=== PATIENT | female | born 1955 | race Caucasian/White ===

== ENCOUNTER → 2023-12-07 09:25 | Outpatient (REF) | payer OTHER, SELFPAY | LOC: WDC 09:25 | PROVIDERS: ATTENDING PHYSICIAN Surgery Plastic and Reconstructive Surgery; FAMILY PHYSICIAN Nurse Practitioner | DX: K46.9 Unspecified abdominal hernia without obstruction or gangrene (principal); T85.49XA Other mechanical complication of breast prosthesis and implant, initial encounter; Z01.818 Encounter for other preprocedural examination | CPT/HCPCS: 71260; 74177; 76642; 93005; Q9967 ==

== ENCOUNTER → 2023-12-20 11:20 | Outpatient (REF) | payer OTHER, SELFPAY | LOC: WDC 11:20 | PROVIDERS: ATTENDING PHYSICIAN Surgery Plastic and Reconstructive Surgery; FAMILY PHYSICIAN Nurse Practitioner | DX: T85.49XA Other mechanical complication of breast prosthesis and implant, initial encounter (principal); K46.9 Unspecified abdominal hernia without obstruction or gangrene | CPT/HCPCS: 19000; 76942; 88112 ==

== ENCOUNTER 2024-01-26 18:07 | Observation (INO) | payer OTHER, SELFPAY ==
[2024-01-26] VITALS (19 sets, daily range): BP systolic 0–135; BP diastolic 52–99; BMI 25.8
[2024-01-26] MEDS: TYLENOL 1000 MG PO ×2 (11:04→19:41)
--- NOTE | 2024-01-26 11:41 | W.SUR.PREOP ---
Pre-Operative Surgical Note
-
I have examined this patient prior to the performance of the scheduled procedure.
The patient's condition is unchanged from the time of the current History and
Physical and the patient is able to undergo the scheduled procedure.
--- NOTE | 2024-01-26 13:18 | W.IMMPOSTOP ---
Addendum entered and electronically signed by Jann Vines MD 01/26/24 13:25:
#[id number]
Original Note:
Surgical Immed Post Op Note
-
Primary Surgeon: Jasmyn
Assisting Surgeon: Alicia LINDSEY
Pre-op Diagnosis: Epigastric ventral hernia
Post-op Diagnosis: Epigastric ventral hernia; 2 cm
Procedure Performed: Open ventral hernia pair with mesh; Ventralex ST 6.4 cm round
Anesthesia Type: GETA +0.25% Marcaine
Specimen / Cultures: None
Estimated Blood Loss: 6 mL
Complications: None immediate
Operative Findings: 2 cm epigastric ventral hernia containing preperitoneal fat. Underlay preperitoneal mesh repair, Ventralex ST 6.4 cm round, with closure of fascial defect.
--- NOTE | 2024-01-26 16:31 | W.IMMPOSTOP ---
Surgical Immed Post Op Note
-
Primary Surgeon: UL Saleem MD
Assisting Surgeon:
Pre-op Diagnosis: ruptured silicone gel breast implant, grade 4 capsular contracture, delayed seroma, history of textured breast implants
Post-op Diagnosis: same
Procedure Performed: bilateral capsulectomies with removal of right implant, removal of left ruptured implant, bilateral lateral capsulorrhaphy's, insertion of cohesive gel silicone breast implants
Anesthesia Type: General
Specimen / Cultures: Right and left breast capsule, left periprosthetic fluid for cytology, left fluid for pathology
Estimated Blood Loss: 30 cc
Complications: none
Operative Findings: thick left breast implant capsule with associated fluid collection, ruptured silicone implant on the left, intact right silicone gel textured implant
--- NOTE | 2024-01-26 16:38 | OR.RPT ---
Operative Report
Operative Report
date of surgery: 01/26/2024
Surgeon: LU Saleem MD
Preoperative diagnosis:
1. History of bilateral textured breast implants
2. Left breast implant rupture
3. Delayed onset seroma of the left breast
4. Capsular contracture, grade 4
Postoperative diagnosis: Same
Procedure:
1. Complete en bloc capsulectomy, bilateral breast
2. Removal of right intact breast implant
3. Removal of left ruptured breast implant
4. Bilateral lateral capsulorrhaphies
5. Bilateral insertion of silicone gel breast implants (cosmetic)
Anesthesia: General
EBL: 30 cc
Complications: None
Specimens: Right breast capsule, left breast capsule, left breast ruptured implant and fluid, left periprosthetic fluid for cytology
Indications for procedure:
Patient is a 68-year-old female with a long history of bilateral breast implants. These were placed through a periareolar incision. She presented in the spring with concerns for rupture and complaints of capsular contracture. We discussed
removal of the bilateral breast implants with capsulectomy at that time, but she desired to proceed with cosmetic replacement of bilateral breast implants. She presented again more recently with notable changes to the left breast. On initial exam,
capsular contracture was present but no fluid collection or distortion was obvious. On follow-up exam, there was a clear interval change with associated fluid collection. As such she was referred for CT scan and aspiration of the fluid for
evaluation for potential ALCL given the delayed onset seroma. This was negative or not enough fluid was able to be sampled. As such decision was made to proceed with bilateral capsulectomy and removal of the implants. The periprosthetic fluid be
sent for cytology as able and the capsulectomy would be performed en bloc. She desired cosmetic replacement of the bilateral breast implants. She desired to be slightly larger than her preoperative state. Risks of implants were reviewed at
length including hematoma, seroma, capsular contracture, breast implant associated ALCL, infection, rupture, malposition and need for future surgery. She understood these risks and desired to proceed. The surgery was coordinated with general
surgery for which she was undergoing elective ventral hernia repair with mesh By Dr. Vines.
Procedure in detail: Procedure was identified preoperatively and the surgical site was confirmed to be the bilateral breast. Inframammary incisions were marked out along the fold. All questions were answered and consents were confirmed. Was
confirmed with the patient she desired to be slightly larger than her preoperative state. Patient was taken back to the operating room placed supine on the table. she was prepped and draped in the usual sterile fashion using ChloraPrep solution.
Timeout for patient safety was performed was confirmed that preoperative antibiotics have been administered and bilateral SCDs were placed. Procedure began with Dr. Vines performing the ventral hernia repair. His operative report will be
dictated separately.
Upon completion, I reentered the operating room. My procedure began with the injection 1% lidocaine with epinephrine in the proposed incisions in the fold. 15 blade was used to for started on the right and incise the markings. Bovie
electrocautery was used to dissect down to the implant capsule. Electrocautery was used to dissect around the capsule to perform the capsulectomy en bloc. This was done on the anterior and posterior surface as much as was able prior to performing
a capsulotomy and removing an intact right textured implant with no gastroenterology nurse information but labeled as 500 cc. The capsule itself appeared only mildly thickened but largely regular. The remainder of the capsulectomy was performed freeing the
tissue from the associated pectoralis muscle. Marcaine block was performed in a lateral capsulorrhaphy using oh0 PDS suture was done along the lateral chest wall after ensuring meticulous hemostasis. Double antibiotic solution followed by dilute
Betadine was used to irrigate the pocket, new gloves were donned, and a Tong funnel used to placed a 575 cc Sientra plus silicone gel implant. a drain was placed and the wound was closed in layers with 2-0 Vicryl deep followed by 3-0 and 4-0
Monocryl. Attention was then drawn to the left side where the fold incision was made with a 15 blade and Bovie electrocautery was used to dissect out the capsule. Again, a complete capsulectomy was performed en bloc. At some point, capsulotomy
was made and the fluid was collected to be sent for cytology and pathology. The fluid itself was thin and brown. There was some intracapsular contents were also sent for pathology. The ruptured silicone gel was removed and the remainder of the
capsulectomy was performed. The capsule on the left side was noticeably thickened with an irregular and discolored internal surface. Following the complete capsulectomy, no residual visible or palpable abnormalities existed in the wound bed.
Marcaine blocks were performed and meticulous hemostasis was ensured, a lateral capsulorrhaphy was performed and the wound bed was irrigated with double antibiotic solution followed by dilute Betadine. A 575 cc silicone gel Sientra implant was
placed into the left pocket using a no touch technique after donning new gloves and using a Tong funnel. A drain was also left in place. The wound was then closed in layers using 2-0 Vicryl deep followed by 3-0 and 4-0 Monocryl. Patient
tolerated the procedure well, was performed out complication, all counts were correct at the end the case. She was extubated and taken the PACU for further care after appropriately dressing the wounds.
--- NOTE | 2024-01-26 18:23 | PTCARENOTE ---
addendum: pt does not meet pacu criteria, remain drowsy, unablto wean o2, notify dr. sandoval and char, both made aware of pt. condition. Dr. Saleem placed admit orders. Pt's was informed.
[2024-01-26] MEDS: LIPITOR 40 MG PO (19:42)
[2024-01-26] MEDS: ULTRAM 50 MG PO (19:56)
[2024-01-26] MEDS: ANCEF 5 IV (19:57)
--- NOTE | 2024-01-26 22:12 | PTCARENOTE ---
Pt arrived at aprox 1850 from PACU. Pt AAOx3 but drowsy. Vitals stable. Pt with bilateral breast CHARLES drains with 3 other surgical incisions all with gauze and tegaderms. No drainage noted. Admission and assessment completed. Pt does have pain to
drain sites. Medicated with Tramadol and scheduled tylenol. Pt able to drink some tea and eat a box lunch. Pt instructed to ring for assistance OOB.
[2024-01-27 03:13] VITALS: BP 92/58
[2024-01-27] MEDS: TYLENOL PO (05:00)
[2024-01-27] MEDS: ULTRAM 50 MG PO ×2 (05:11→11:34)
[2024-01-27] MEDS: TYLENOL 1000 MG PO ×2 (05:11→11:34)
[2024-01-27] MEDS: ANCEF 5 IV ×2 (05:11→11:34)
[2024-01-27 07:10] VITALS: BP 102/64
--- NOTE | 2024-01-27 09:53 | W.DCSUMMARY ---
Discharge Summary
Discharge Data
Date of Admission: 01/26/24
Date of Discharge: 01/27/24
-
Pending Results: No
Hospital Course
Admitted for IV pain control after hernia repair and bilateral removal and replacement of implants with capsulectomy.
Routine course otherwise
Discharged POD 1
Discharge Plan
-
Patient Disposition: Home (Routine Discharge)
Discharge Diagnosis/Procedures: s/p hernia repair and capsulectomies
Condition: Good
Diet: Regular
Activity: No strenuous activity
Driving Restrictions: Not until seen by your Dr
Bathing Restrictions: OK to Shower
Wound Care: Strip and record drain output twice daily, compression bra
Referrals:
Kylie Lo CRNP [Family Provider] -
Prescriptions:
New
acetaminophen [Tylenol Extra Strength] 500 mg Tablet
1,000 mg PO Q6 30 Days Qty: 240 0RF
cefadroxil 500 mg capsule
500 mg PO BID Qty: 42 0RF
Continued
atorvastatin 40 mg Tablet
40 mg PO QPM
trospium 60 mg Capsule,Extended Release 24hr
60 mg PO DAILY
cholecalciferol (vitamin D3) [Vitamin D3] 50 mcg (2,000 unit) Tablet
100 mcg PO DAILY
apple cider vinegar
1 dose PO DAILY
Discharge Orders:
Discharge Patient (As Directed); Ordered 01/27/24
Ordered By: Kash Saleem
Discharge Date and Time
Print Language: NEPALESE
--- NOTE | 2024-01-27 11:36 | CM ---
Patient seen at bedside.
IA completed. RAMIREZ form explained & signed.
s/p hernia repair, replacement implants w/capsulotomy
Lives in a 2 story home with , 1 step to enter, steps to 2nd floor,
PLOF: Independent, no AD
Denies DME
Discussed VN - declines VN
PCP: Kylie Lo
Pharmacy: [facility]
PLAN: home, declines VN
to transport
[2024-01-27 11:59] VITALS: BP 99/50
== END 2024-01-27 13:11 | disposition home or self-care (01) ==
LOC: 2 NORTH 18:07
PROVIDERS: ADMITTING PHYSICIAN Surgery; ATTENDING PHYSICIAN Surgery Plastic and Reconstructive Surgery; FAMILY PHYSICIAN Nurse Practitioner
DX: T85.44XA Capsular contracture of breast implant, initial encounter (principal); T85.49XA Other mechanical complication of breast prosthesis and implant, initial encounter; K43.9 Ventral hernia without obstruction or gangrene; Y83.4 Other reconstructive surgery as the cause of abnormal reaction of the patient, or of later complication, without mention of misadventure at the time of the procedure; Y92.9 Unspecified place or not applicable; N64.89 Other specified disorders of breast
CPT/HCPCS: 49593; 19370; 19342; L8600; 88300; 88304; 88305; 88112; 88341; 88342; 88365; C1781; G0378